=== PATIENT | female | born 1990 | race Caucasian/White ===

== ENCOUNTER 2019-05-08 07:46 | Day surgery (SDC) | payer OTHER ==
[~2019-05-08 07:46] MED LIST: PROPOFOL INJ 200 MG/20 ML VIAL IV ONE
[2019-05-08] MEDS ORDERED: LIDOCAINE 0.5% INJ-PF (5 MG/ML) 50 ML SDV ONE (07:55)
[2019-05-08 08:51] VITALS: BP 104/64
--- NOTE | 2019-05-08 13:14 | Operative Report ---
Operative Report DATE OF SURGERY: 05/08/19 Operative Report: The risks, benefits and alternatives of the procedure including the risk of bleeding, perforation requiring surgery have been explained to the patient in detail and informed consent has been obtained. Patient is taken back to the endoscopy suite and placed in a left, lateral decubital position. Timeout was called. Propofol medication is administered. Rectal examination is done which did not reveal any masses, tears or fissures. An Olympus videoscope was introduced into the patient's rectum. Scope was then carefully advanced all the way to the cecum. The cecum was identified by the usual anatomical landmarks of the ileocecal valve as well as the appendiceal office. Photodocumentation is obtained. The scope was then sequentially pulled back via the rest segments of the colon including the ascending colon, hepatic flexure, transverse colon, splenic flexure, descending colon finding to the rectosigmoid portions of the colon. Retroflexion maneuvers performed. PREOPERATIVE DIAGNOSIS: Change in bowel habits, right lower quadrant discomfort POSTOPERATIVE DIAGNOSIS: Mild ileitis status post biopsy OPERATION: Colonoscopy with biopsy SURGEON: JORGE BATISTA ANESTHESIA: LMAC TISSUE REMOVED OR ALTERED: As noted above. COMPLICATIONS: None. ESTIMATED BLOOD LOSS: None. INTRAOPERATIVE FINDINGS: As noted above. PROCEDURE: Patient tolerated the procedure well. No immediate postprocedure complications are noted. Patient is discharged in good condition. Discharge date 05/08/2019. Discharge diet: Regular. Discharge activity: Regular. 2 to 3-week follow-up to discuss findings. Patient is instructed to call the office or proceed to the emergency room should there be any further problems or questions. Wait on the pathology.
== END 2019-05-08 08:55 | disposition home or self-care (01) ==
LOC: END 07:46
PROVIDERS: ATTEND Internal Medicine Gastroenterology
DX: K52.9 Noninfective gastroenteritis and colitis, unspecified (principal); E03.9 Hypothyroidism, unspecified; Z79.899 Other long term (current) drug therapy
CPT/HCPCS: 88305 ×2; J3490; J2704